=== PATIENT | male | born 1955 | race Caucasian/White ===

== ENCOUNTER 2024-10-23 19:50 | Emergency (ER) | payer MEDICARE, BC, SELFPAY ==
[2024-10-23 19:55] VITALS: BP 115/59
--- NOTE | 2024-10-23 21:41 | ED.GENMED ---
History of Present Illness
General
Chief Complaint: Musculo-Skeletal Complaint
Source: patient
Time Seen by Provider: 10/23/24 21:34
History of Present Illness
History of Present Illness:
69-year-old male with past medical history of hypertension, hyperlipidemia, previous WI status post CABG presenting to the emergency department for evaluation after accidentally dropping a piece of plywood on his right hand stating the corner hit
the dorsal aspect of the hand over the 2nd, 3rd and 4th distal metacarpals, increased pain and swelling since the injury. Patient is right-hand dominant. No other injuries were sustained. Patient is unsure of his last tetanus but does not want
this updated while here.
Past History
Past History
ED Past Medical History: CAD, GERD, HTN, Hypercholesterolemia and WI
ED Past Surgical History: Appendectomy, Cardiac, Orthopedic and Other
Social History
Tobacco: Non-smoker
Alcohol: None
Drug: None
Personal:
Living: with family
Employment: Employed
Family History
Family History: CAD (father w/ WI in 70s)
Review of Systems
Review of Systems
All Other Systems: ROS reviewed and negative except as documented in HPI and ROS
Phy Exam
Physical Exam
Physical Exam:
GENERAL: Alert , in no apparent distress
EYE: conjunctiva clear
Head: Normocephalic atraumatic
NECK: Supple,
ENT: mmm.
LUNGS: no acute respiratory distress
NEUROLOGICAL: Alert and oriented
SKIN: Warm and dry, superficial abrasions over the middle and ring finger with soft tissue swelling over the 2nd, 3rd and 4th metacarpals. Increased pain with range of motion. Remainder of extremity within normal limits.
MUSCULOSKELETAL: well perfused. Easily palpable radial pulse. Cap refill less than 2 seconds.
PSYCH: Normal and appropriate interaction.
Scores
Heart Failure Risk
Heart Failure Risk Score: Not Applicable
Heart Score for Chest Pain Patients
STEMI patient?: Not applicable
Withdrawal Assessment of Alcohol
Withdrawal Assessment Completed?: Not applicable
Course
Orders/Labs/Results
Orders:
Orders
10/23/24 19:51
Hand, Right 3 View [CR Hand - Right Min 3 Views] Urgent
Comment:
Reason For Exam: injury
Vital Signs
Initial and Last Documented VS:
Initial Vital Signs
Temp Pulse Resp BP Pulse Ox
97.9 F 79 18 115/59 98
10/23/24 19:55 10/23/24 19:55 10/23/24 19:55 10/23/24 19:55 10/23/24 19:55
Last Documented Vital Signs
Temp Pulse Resp BP Pulse Ox
97.9 F 79 18 115/59 98
10/23/24 19:55 10/23/24 19:55 10/23/24 19:55 10/23/24 19:55 10/23/24 19:55
MDM/Problems Addressed
Differential Diagnosis Includes:
Contusion, abrasion, less concern for fracture
MDM/Problems Addressed:
69-year-old male presenting to the emergency department for evaluation after injuring his right hand when a piece of plywood dropped on his right hand. X-ray ordered from triage shows no acute fracture. Suspect soft tissue swelling/contusion. Ice
and elevation. Patient on Plavix so will avoid NSAIDs, recommend Tylenol for pain as needed. Otherwise stable for discharge home.
*Radiology
Radiology exam reviewed: preliminary read by ED provider (no fx)
*Pulse Oximetry
Patient hypoxic: no
*Critical Care Note
Total Time (30-74mins, 75-104mins- exclusive of procedures): Not Applicable
ED Attending Note
-
Portions of this chart may have been created with voice recognition software.� Occasional wrong word or��sound alike� substitutions may have occurred due to the inherent limitations of voice recognition software.
Discharge Plan
Departure
Patient Disposition: Home (Routine Discharge)
Date of Disposition: 10/23/24
Time of Disposition: 21:41
Patient with high blood pressure during this ER visit?: No
Discharge Problem:
Contusion of dorsum of right hand
Instructions: Contusion (DC)
Prescriptions:
No Action
clopidogrel 75 MG tablet
75 mg PO DAILY
aspirin 81 MG tablet,delayed release (DR/EC)
81 mg PO DAILY
coenzyme Q10 [Co Q-10] 100 MG capsule
100 mg PO DAILY
nebivolol 2.5 MG tablet
5 mg PO DAILY
atorvastatin 20 MG tablet
20 mg PO MOWEFR@0800
ezetimibe 10 MG tablet
10 mg PO TUTHSA@0800
cholecalciferol (vitamin D3) 2,000 UNITS tablet
4,000 units PO DAILY
multivitamin with folic acid [Tab-A-Diamond] 1 TABLET tablet
1 tab PO DAILY
Interventions
Interventions:
*Risk Screen - Suicide Last Done: 10/23/24 19:55
*General Assessment Last Done: 10/23/24 19:55
*Neglect/Abuse Screening Last Done: 10/23/24 21:37
*ED- Fall Risk Assessment Last Done: 10/23/24 19:55
*ED COVID-19 Vaccine History Last Done: 10/23/24 19:55
*Nursing Disposition Last Done: 10/23/24 21:44
ED-Musculoskeletal Assessment Last Done: 10/23/24 21:37
Discharge Date and Time
Discharge Date/Time: 10/23/24 21:45
Print Language: HEBREW
== END 2024-10-23 21:45 | disposition home or self-care (01) ==
LOC: EMR 19:50
PROVIDERS: EMERGENCY PHYSICIAN Emergency Medicine; FAMILY PHYSICIAN Family Medicine
DX: S60.221A Contusion of right hand, initial encounter (principal); W20.8XXA Other cause of strike by thrown, projected or falling object, initial encounter; E78.00 Pure hypercholesterolemia, unspecified; I10 Essential (primary) hypertension; I25.10 Atherosclerotic heart disease of native coronary artery without angina pectoris; I25.2 Old myocardial infarction; Z95.1 Presence of aortocoronary bypass graft; Z79.02 Long term (current) use of antithrombotics/antiplatelets
CPT/HCPCS: 99283; 73130